=== PATIENT | female | born 1950 | race Caucasian/White ===

== ENCOUNTER 2017-05-12 00:38 | Emergency (ER) | payer MEDICARE, OTHER ==
[~2017-05-12] VITALS: Ht 167.6 cm; Wt 72.0 kg
[2017-05-12 00:39] VITALS: BP 174/105; PULSE 124; RESP 18; TEMP 98.2; O2SAT 96
--- NOTE | 2017-05-12 01:58 | PD ---
HPI Chief Complaint: Injury Time Seen by Provider: 01:57 Travel History International Travel<30 days: No Contact w/Intl Traveler<30days: No Traveled to known affect area: No History of Present Illness HPI Patient comes in for evaluation status post fall that occurred around 1530 yesterday. Patient states [place] the [place] she stepped in a hole causing her to fall injuring her left leg and hitting her head. Denies any loss consciousness, headache other than her ordinary headache, dizziness, change in vision, vomiting, chest pain, shortness breath, numbness or tingling anywhere, neck pain, back pain, or loss/change of bowel or bladder. Patient complaining of throbbing aching pain in the medial aspect of her right proximal lower leg. Denies any knee pain. Patient's has been using ice and over-the- counter oils with little no improvement of symptoms. Pain is worse with walking. Pain is aching burning like in nature without radiation. Patient denies being on any blood thinners other than aspirin her Fioricet. PFSH Past Medical History Chemotherapy: Yes Headaches: Yes (MIGRAINES) Tetanus Vaccination: Unknown Past Surgical History Hysterectomy: Yes Tonsillectomy: Yes Social History Alcohol Use: No Tobacco Use: No Substance Use: No Allergies-Medications (Allergen,Severity, Reaction): Coded Allergies: No Known Allergies (Unverified , 05/12/17) Review of Systems Except as stated in HPI: all other systems reviewed are Neg Physical Exam Narrative GENERAL: Well-developed, well nourished, in no acute distress, and non-ill appearing. SKIN: Ecchymosis noted right forehead medial aspect of left lower leg proximally. It is mildly tender. There is no crepitus, fluctuation, or induration. HEAD: Atraumatic. Normocephalic. EYES: Pupils equal and round. EOMI. No scleral icterus. No injection or drainage. ENT: No nasal bleeding or discharge. Mucous membranes pink and moist. NECK: Trachea midline. Supple. No nuclear rigidity. No tenderness crepitus or midline cervical spine. CARDIOVASCULAR: Dorsal pulses 2+, intact, and equal bilaterally. Capillary refill less than 2 seconds. RESPIRATORY: No accessory muscle use. No respiratory distress. MUSCULOSKELETAL: No obvious deformities. No clubbing. No cyanosis. No edema. Full range of motion. Knee: Negative patellar apprehension, varus and valgus maneuvers, anterior draw test, and Louise test. Pulses equal BL distal to injury. Capillary refill less than 2 seconds distal to injury and equal BL. FROM distal to injury and equal BL. Strength distal to injury equal BL. NV intact distal to injury. Dorsal pulses equal BL. Sensation equal BL 1st web space. Negative Homans sign bilaterally. Patient reports tenderness to palpation left lower leg over area of ecchymosis. There is no signs of compartment syndrome. NEUROLOGICAL: Awake and alert. No obvious cranial nerve deficits. Motor grossly within normal limits. Normal speech. PSYCHIATRIC: Appropriate mood and affect; insight and judgment normal. Data Data Last Documented VS Vital Signs Date Time Temp Pulse Resp B/P Pulse Ox O2 Delivery O2 Flow Rate FiO2 05/12/17 00:39 98.2 124 18 174/[address] Brain W/O Iv Contrast(Rout) (05/12/17 ) Ct Cerv Spine W/O Contrast (05/12/17 ) Tibia/Fibula (Ap/Lat) (05/12/17 ) Ice/Cold Pack (05/12/17 01:51) Splint Or Brace Apply/Monitor (05/12/17 02:57) MDM Medical Decision Making Medical Screen Exam Complete: Yes Emergency Medical Condition: Yes Interpretation(s) Left tib-fib x-ray read by the radiologist shows: Unremarkable examination of the left tibia. CT cervical spine read by the radiologist shows: No acute bony injury in the cervical spine CT abdomen and radiologist shows: Normal examination. Differential Diagnosis Fracture, strain, contusion, head injury, intracranial hemorrhage, other Narrative Course Patient presents with closed head injury. There was no evidence of cranial or intracranial injury noted on CT of the head and no evidence of fracture or injury to cervical spine on C-spine CT. The patient has been behaving normally and no notable altered mental status. Vito score of 15. The neurologic exam is normal. The patient is awake and aware and motor sensory exams are normal. There is no clinical evidence to support intracranial injury or bleed. The patient appears to have suffered a contusion of the extremity. There is no clinical evidence to suspect bony injury by exam. Radiographic examination revealed no fracture seen at this time. The patient has full range of motion on active and passive motions. There is no significant edema. There is no proximal or distal joint effusion. The distal extremity appears neurovascularly intact, without evidence of neurovascular injury nor compartment syndrome. Tendon exam also was intact. The patient was discharged on pain medication instructions and given warnings for vascular compromise. The patient is to follow up with their regular physician or Orthopedics. The patient agrees with plan. Patient in no obvious distress upon re-evaluation. All pertinent Radiology result(s) discussed with patient/family. Any questions/concerns in reference to patient diagnosis/condition discussed and clarified prior to patient's discharge. Reinforced sheer importance of close follow up with patient's primary physician or primary care clinic. Instructed patient to return to ED immediately, if symptoms return/worsen. Pt showed understanding of above instructions. Further instructions and recommendations were detailed in discharge paperwork. Pt ambulated without difficulty out of ED at discharge. Diagnosis Primary Impression: Contusion of left lower leg, initial encounter Additional Impression: Closed head injury Qualified Code: S09.90XA - Closed head injury, initial encounter Patient Instructions: Contusion in Adults (ED), General Instructions, Head Injury (ED) Additional Instructions: Follow-up with your primary care physician and/or orthopedics 3-5 days for reevaluation. Apply ice to affected area 20 minutes prior as needed for pain. Use [id number] Tylenol and/or ibuprofen as needed for pain. Follow instructions on the packaging. Wear wrap as needed for comfort. Return to the emergency department if symptoms get worse. Disposition: 01 DISCHARGE HOME Condition: Stable Luis Valle May 12, 2017 01:58
--- NOTE | 2017-05-12 02:35 | RADRPT ---
EXAM DATE/TIME: 05/12/2017 01:46 [facility] COMPARISON: No previous studies available for comparison. INDICATIONS : Left lower leg pain from fall [place] the beach today. MEDICAL HISTORY : None. SURGICAL HISTORY : None. ENCOUNTER: Initial ACUITY: 1 day PAIN SCORE: 10/10 LOCATION: Left Tibia/Fibula FINDINGS: Two view examination of the left tibia demonstrates no evidence of fracture or dislocation. Bony min eralization is normal. The soft tissue structures are intact. CONCLUSION: Unremarkable examination of the left tibia. Juan Ramon Forde MD on May 12, 2017 at 2:33 Board Certified Radiologist. This report was verified electronically.
--- NOTE | 2017-05-12 02:37 | RADRPT ---
EXAM DATE/TIME: 05/12/2017 02:12 [facility] COMPARISON: No previous studies available for comparison. INDICATIONS : Trauma, fall on beach. RADIATION DOSE: 56.35 CTDIvol (mGy) MEDICAL HISTORY : None SURGICAL HISTORY : None. ENCOUNTER: Initial ACUITY: 1 day PAIN SCALE: 3/10 LOCATION: cranial TECHNIQUE: Multiple contiguous axial images were obtained of the head. Using automated exposure control and adj ustment of the mA and/or kV according to patient size, radiation dose was kept as low as reasonably a chievable to obtain optimal diagnostic quality images. DICOM format image data is available electro nically for review and comparison. FINDINGS: CEREBRUM: The ventricles are normal for age. No evidence of midline shift, mass lesion, hemorrhage or acute in farction. No extra-axial fluid collections are seen. POSTERIOR FOSSA: The cerebellum and brainstem are intact. The 4th ventricle is midline. The cerebellopontine angle i s unremarkable. EXTRACRANIAL: The visualized portion of the orbits is intact. SKULL: The calvaria is intact. No evidence of skull fracture. CONCLUSION: Normal examination. Juan Ramon Forde MD on May 12, 2017 at 2:35 Board Certified Radiologist. This report was verified electronically.
--- NOTE | 2017-05-12 02:47 | RADRPT ---
EXAM DATE/TIME: 05/12/2017 02:13 [facility] COMPARISON: No previous studies available for comparison. INDICATIONS : Trauma, fall on beach. RADIATION DOSE: 29.18 CTDIvol (mGy) MEDICAL HISTORY : None SURGICAL HISTORY : None. ENCOUNTER: Initial ACUITY: 1 day PAIN SCALE: 0/10 LOCATION: neck TECHNIQUE: Volumetric scanning of the cervical spine was performed. Multiplanar reconstructions in the sagittal, coronal and oblique axial planes were performed. Using automated exposure control and adjustment o f the mA and/or kV according to patient size, radiation dose was kept as low as reasonably achievable to obtain optimal diagnostic quality images. DICOM format image data is available electronically f or review and comparison. FINDINGS: The cervical spine alignment is satisfactory. There is no evidence of cervical spine fracture. No bon y canal or foraminal compromise is identified. There are mild degenerative changes with disc space na rrowing and endplate osteophyte formation most significantly at C5-6 and C6-7 interspaces. There is n o evidence of paraspinal hematoma. Goitrous enlargement of the thyroid is present with calcified nodu les present bilaterally CONCLUSION: No acute bony injury in the cervical spine Juan Ramon Forde MD on May 12, 2017 at 2:42 Board Certified Radiologist. This report was verified electronically.
== END 2017-05-12 03:16 | disposition home or self-care (01) ==
LOC: NEPD 00:38
DX: S80.12XA Contusion of left lower leg, initial encounter (principal); S09.90XA Unspecified injury of head, initial encounter; W17.2XXA Fall into hole, initial encounter; Y93.01 Activity, walking, marching and hiking; Y92.832 Beach as the place of occurrence of the external cause
CPT/HCPCS: 70450; 72125; 73590